=== PATIENT | female | born 1960 | race Caucasian/White ===

== ENCOUNTER 2018-02-04 16:46 | Emergency (ER) | payer OTHER ==
[2018-02-04 17:09] VITALS: BP 138/73
--- NOTE | 2018-02-04 17:57 | ED ---
Lower Extremity - HPI Summary HPI Summary: 57 yr old female with the complaint of right calf pain. Pain is moderate, onset four days ago, located back of right leg at the medial calf and down into the medial ankle area. She noted some redness and some swelling. Denies SOB, CP. No travel recently. - History of Current Complaint Chief Complaint: UCLowerExtremity Stated Complaint: RT LEG PAIN/REDNESS Time Seen by Provider: 02/04/18 17:46 Hx Last Menstrual Period: 2012 Pain Intensity: 6 - Allergies/Home Medications Allergies/Adverse Reactions: Allergies Allergy/AdvReac Type Severity Reaction Status Date / Time Penicillins Allergy Severe Nausea And Verified 02/04/18 17:04 Vomiting Home Medications: Home Medications NK [No Home Medications Reported] 02/04/18 [History Confirmed 02/04/18] PMH/Surg Hx/FS Hx/Imm Hx - Surgical History Surgery Procedure, Year, and Place: GALL BLADDER REMOVAL. Hysterectomy Infectious Disease History: No Infectious Disease History: Denies: Traveled Outside the [place] in Last 30 Days - Family History Known Family History: Positive: Other - no FMH of osteoporosis - Social History Alcohol Use: None Substance Use Type: Reports: None Hx Tobacco Use: Yes Smoking Status (MU): Light Every Day Tobacco Smoker Type: Cigarettes Amount Used/How Often: 1/2-1 PPD Have You Smoked in the Last Year: Yes Review of Systems Constitutional: Negative Negative: Chest Pain Negative: Shortness Of Breath All Other Systems Reviewed And Are Negative: Yes Physical Exam Triage Information Reviewed: Yes Vital Signs On Initial Exam: Initial Vitals Temp Pulse Resp BP Pulse Ox 99 F 92 18 138/73 100 02/04/18 17:03 02/04/18 17:03 02/04/18 17:03 02/04/18 17:03 02/04/18 17:03 Vital Signs Reviewed: Yes Appearance: Positive: Well-Appearing, No Pain Distress Skin: Positive: Warm, Skin Color Reflects Adequate Perfusion Head/Face: Positive: Normal Head/Face Inspection Eyes: Positive: EOMI ENT: Positive: Normal ENT inspection Respiratory/Lung Sounds: Positive: Clear to Auscultation, Breath Sounds Present Cardiovascular: Positive: RRR. Negative: Murmur Abdomen Description: Positive: Nontender Musculoskeletal: Positive: Strength/ROM Intact, Other - intact DP and PT pulses right foot. She has some tenderness over the right calf area without any obvious redness or swelling. Neurological: Positive: Sensory/Motor Intact, Alert, Oriented to Person Place, Time, CN Intact II-III Psychiatric: Positive: Normal - Homero Coma Scale Best Eye Response: 4 - Spontaneous Best Motor Response: 6 - Obeys Commands Best Verbal Response: 5 - Oriented Coma Scale Total: 15 Diagnostics - Vital Signs Vital Signs Temp Pulse Resp BP Pulse Ox 02/04/18 17:03 99 F 92 18 138/73 100 - Laboratory Lab Statement: Any lab studies that have been ordered have been reviewed, and results considered in the medical decision making process. Lower Extremity Course/Dx - Course Course Of Treatment: 57 yr old female with right calf pain. She was offered ambulance to ER , but insists on driving herself to the ER. - Diagnoses Provider Diagnoses: Right calf pain Discharge - Sign-Out/Discharge Documenting (check all that apply): Discharge/Admit/Transfer - Discharge Plan Condition: Good Disposition: TRANS HIGHER LVL OF CARE FAC Patient Education Materials: Hypertension (ED), Leg Pain (ED) Referrals: RERE Hussein [Primary Care Provider] - Additional Instructions: You need to go to the ER for evaluation of your leg for possible blood clot. Do not delay going. Go now. - Billing Disposition and Condition Condition: GOOD Disposition: Trans Higher Lvl of Care Fac
== END 2018-02-04 18:02 | disposition short-term general hospital (02) ==
LOC: UCCORT 16:46
DX: M79.661 Pain in right lower leg (principal); Z88.0 Allergy status to penicillin
CPT/HCPCS: 99212; G0463

== ENCOUNTER 2019-08-11 11:10 | Emergency (ER) | payer OTHER ==
[2019-08-11 12:11] VITALS: BP 150/67
--- NOTE | 2019-08-11 13:25 | UC ---
Respiratory Complaint HPI - HPI Summary HPI Summary: cough x 4 days cough is productive, with yellow sputum worse with deep breathing, better with rest, + nasal congestion , pnd, sinus pain / pressure, fever and chills no sob , no chest pain - History of Current Complaint Chief Complaint: UCRespiratory Stated Complaint: CHEST CONGESTION Time Seen by Provider: 08/11/19 12:13 Hx Obtained From: Patient Hx Last Menstrual Period: 2012 ?: No Onset/Duration: Gradual Onset, Lasting Days - 4, Still Present Timing: Constant Severity Initially: Moderate Severity Currently: Moderate Pain Intensity: 0 Pain Scale Used: 0-10 Numeric Character: Cough: Productive Aggravating Factors: Exertion, Deep Breaths Alleviating Factors: Nothing Associated Signs And Symptoms: Positive: Fever, Chills, URI, Nasal Congestion, Sinus Discomfort. Negative: Dyspnea, Pleuritic Chest Pain, Wheezing, Hemoptysis , Dizziness - Allergies/Home Medications Allergies/Adverse Reactions: Allergies Allergy/AdvReac Type Severity Reaction Status Date / Time Penicillins Allergy Severe Nausea And Verified 08/11/19 12:02 Vomiting Home Medications: Home Medications Pseudoephedrine TAB* [Sudafed TAB*] 30 mg PO TID PRN 08/11/19 [History Confirmed 08/11/19] PMH/Surg Hx/FS Hx/Imm Hx - Additional Past Medical History Additional PMH: ACID REFLUX, right ankle sprain PNEUMONIA 2012 - Surgical History Surgical History: Yes Surgery Procedure, Year, and Place: GALL BLADDER REMOVAL. Hysterectomy - Family History Known Family History: Positive: Other - no FMH of osteoporosis Negative: Diabetes - Social History Alcohol Use: None Substance Use Type: None Smoking Status (MU): Light Every Day Tobacco Smoker Type: Cigarettes Amount Used/How Often: 1/2-1 PPD Have You Smoked in the Last Year: Yes Household Exposure Type: Cigarettes Review of Systems All Other Systems Reviewed And Are Negative: Yes Constitutional: Positive: Negative Skin: Positive: Negative Eyes: Positive: Negative ENT: Positive: Sore Throat, Ear Ache, Nasal Discharge, Sinus Congestion, Sinus Pain/Tenderness Respiratory: Positive: Cough Cardiovascular: Positive: Negative Is Patient Immunocompromised?: No Physical Exam Triage Information Reviewed: Yes Appearance: Well-Appearing, No Pain Distress, Well-Nourished Vital Signs: Initial Vital Signs Temp 98.3 F 08/11/19 12:03 Pulse 81 08/11/19 12:03 Resp 16 08/11/19 12:03 BP 150/67 08/11/19 12:03 Pulse Ox 100 08/11/19 12:03 Vital Signs Reviewed: Yes Eye Exam: Normal Eyes: Positive: Conjunctiva Clear ENT: Positive: Normal ENT inspection, Hearing grossly normal, Pharynx normal, TMs normal, Sinus tenderness Neck exam: Normal Neck: Positive: Supple, Nontender, No Lymphadenopathy Respiratory: Positive: Chest non-tender, Lungs clear, Normal breath sounds Cardiovascular: Positive: RRR, No Murmur, Pulses Normal Skin Exam: Normal Diagnostics - Radiology No standard instances Radiology Interpretation Completed By: Radiologist Summary of Radiographic Findings: chest xray report: no cardiopulmonary disease Respiratory Course/Dx - Differential Dx/Diagnosis Provider Diagnosis: Bronchitis, Sinusitis Discharge ED - Sign-Out/Discharge Documenting (check all that apply): Patient Departure All imaging exams completed and their final reports reviewed: Yes - Discharge Plan Condition: Stable Disposition: HOME Prescriptions: Azithromycin TAB* [Zithromax TAB (Z-CHERYL) 250 mg #6 tabs] 2 tab PO .TODAY, THEN 1 DAILY #1 cheryl Benzonatate CAP* [Tessalon 100 MG CAP*] 100 mg PO TID PRN #15 cap PRN Reason: Cough Patient Education Materials: Acute Bronchitis (ED) Forms: *Work Release Referrals: Sandra Forrester [Primary Care Provider] - - Billing Disposition and Condition Condition: STABLE Disposition: Home
== END 2019-08-11 12:47 | disposition home or self-care (01) ==
LOC: UCCORT 11:10
DX: J40 Bronchitis, not specified as acute or chronic (principal); J32.9 Chronic sinusitis, unspecified; F17.210 Nicotine dependence, cigarettes, uncomplicated; Z88.0 Allergy status to penicillin
CPT/HCPCS: 71046; 99212; G0463